=== PATIENT | female | born 1970 | race Two or more races ===

== ENCOUNTER 2021-01-07 13:16 | Emergency (ER) | payer MEDICAID ==
[~2021-01-07] VITALS: Ht 162.6 cm; Wt 77.3 kg
[2021-01-07 13:36] VITALS: BP 142/87
[2021-01-07] MEDS ORDERED: ALBU8.5H17 IH (14:02)
== END 2021-01-07 14:18 | disposition home or self-care (01) ==
LOC: ER 13:16
DX: R06.02 Shortness of breath (principal); F17.200 Nicotine dependence, unspecified, uncomplicated
CPT/HCPCS: 99283

== ENCOUNTER 2021-02-23 16:06 | Inpatient (IN) | payer MEDICAID ==
[~2021-02-23] VITALS: Ht 165.1 cm; Wt 75.0 kg
[~2021-02-23 16:06] MED LIST: ALBU8.5H17 IH
--- NOTE | 2021-02-23 17:18 | NUR ---
CHECKED PT O2 SAT AFTER PT WALKED APROX 23 FT SATS MAINTAINED 98% BUT HR INCREASED TO 125-128 BPM.
[2021-02-23 17:57] LABS: BASOPHILS # (AUTO) 0.1 X10'3 (0-0.2); BASOPHILS % (AUTO) 0.6 % (0-1); EOSINOPHILS # (AUTO) 0.1 X10'3 (0-0.9); EOSINOPHILS % (AUTO) 0.9 % (0-6); HEMATOCRIT 38.3 % (35.0-45.0); HEMOGLOBIN 12.6 g/dl (12.0-16.0); LYMPHOCYTES # (AUTO) 1.8 X10'3 (1.1-4.8); LYMPHOCYTES % (AUTO) 19.2 % (21-51); MEAN CORPUSCULAR HEMOGLOBIN 28.8 PG (27.0-31.0); MEAN CORPUSCULAR HGB CONC 32.8 g/dL (33.0-36.5); MEAN CORPUSCULAR VOLUME 87.8 FL (78-98); MEAN PLATELET VOLUME 7.7 FL (7.4-10.4); MONOCYTES # (AUTO) 0.6 X10'3 (0-0.9); MONOCYTES % (AUTO) 6.3 % (2-12); NEUTROPHILS # (AUTO) 6.8 X10'3 (1.8-7.7); PLATELET COUNT 445 X10'3 (140-440); RED BLOOD COUNT 4.37 X10'6 (4.20-5.60); RED CELL DISTRIBUTION WIDTH 14.6 % (11.5-14.5); WHITE BLOOD COUNT 9.3 X10'3 (4.5-11.0)
[2021-02-23 18:06] LABS: ALANINE AMINOTRANSFERASE 49 U/L (12-78); ALBUMIN 2.8 G/DL (3.4-5.0); ALBUMIN/GLOBULIN RATIO 0.6 (1.1-1.5); ALKALINE PHOSPHATASE 93 IU/L (46-116); ANION GAP 13 (8-16); ASPARTATE AMINO TRANSFERASE 24 U/L (10-37); BILIRUBIN,TOTAL 0.4 MG/DL (0.1-1.0); BLOOD UREA NITROGEN 17 MG/DL (7-18); BUN/CREATININE RATIO 21.5 (6.6-38.0); CHLORIDE 106 MMOL/L (99-107); CREATININE 0.79 MG/DL (0.40-0.90); GLUCOSE 120 MG/DL (70-104); POTASSIUM 4.2 MMOL/L (3.5-5.1); SODIUM 140 MMOL/L (135-145); TOTAL CARBON DIOXIDE 20.8 MMOL/L (24-32); TOTAL PROTEIN 7.2 G/DL (6.4-8.2); eGFR 78 ML/MIN
[2021-02-23] MEDS ORDERED: iohexol 350MG/ML 100ml bottle IV ONE (19:01)
[2021-02-23] MEDS ORDERED: furosemide 10 MG/1 ML 10ml inj IV ONE (20:00)
[2021-02-23] MEDS ORDERED: heparin 10,000 units/1 ML INJ IV ONE ×2 (20:00→20:05)
[2021-02-23] MEDS ORDERED: magnesium 2GM in 50ml NS 50 ML IV PRN (20:30)
[2021-02-23] MEDS ORDERED: PERFLUTREN PROTEIN-A MICROSPHR (Optison) 0.22 MG/ML 3ML VIAL IV ONE (20:30)
[2021-02-23] MEDS ORDERED: potassium Cl 20 mEq SR tablet PO PRN ×2 (20:30)
[2021-02-23] MEDS ORDERED: magnesium 4gm in 100ml NS 100 ML IV PRN (20:30)
[2021-02-23] MEDS ORDERED: magnesium Cl slow-release 64mg tablet PO PRN (20:30)
[2021-02-23] MEDS ORDERED: potassium Cl 40MEQ/1/2NS 520ml 520 ML IV PRN ×2 (20:30)
[2021-02-23] MEDS ORDERED: ondansetron/PF 4mg/2ml inj IV PRN (20:30)
[2021-02-23] MEDS ORDERED: morphine 2 MG/ML inj. syringe IV PRN (20:30)
[2021-02-23] MEDS: heparin 25,000 UNIT/250ml bag 250 ML IV SCH (20:48)
[2021-02-24 03:27] LABS: BASOPHILS # (AUTO) 0.1 X10'3 (0-0.2); BASOPHILS % (AUTO) 1.2 % (0-1); EOSINOPHILS # (AUTO) 0.2 X10'3 (0-0.9); EOSINOPHILS % (AUTO) 1.9 % (0-6); HEMATOCRIT 37.8 % (35.0-45.0); HEMOGLOBIN 12.6 g/dl (12.0-16.0); LYMPHOCYTES # (AUTO) 2.3 X10'3 (1.1-4.8); LYMPHOCYTES % (AUTO) 23.6 % (21-51); MEAN CORPUSCULAR HEMOGLOBIN 28.8 PG (27.0-31.0); MEAN CORPUSCULAR HGB CONC 33.3 g/dL (33.0-36.5); MEAN CORPUSCULAR VOLUME 86.6 FL (78-98); MEAN PLATELET VOLUME 7.8 FL (7.4-10.4); MONOCYTES # (AUTO) 0.6 X10'3 (0-0.9); MONOCYTES % (AUTO) 6.1 % (2-12); NEUTROPHILS # (AUTO) 6.6 X10'3 (1.8-7.7); NEUTROPHILS % (AUTO) 67.2 % (42-75); PLATELET COUNT 413 X10'3 (140-440); RED BLOOD COUNT 4.37 X10'6 (4.20-5.60); RED CELL DISTRIBUTION WIDTH 14.6 % (11.5-14.5); WHITE BLOOD COUNT 9.8 X10'3 (4.5-11.0)
[2021-02-24 03:38] LABS: ALBUMIN 2.7 G/DL (3.4-5.0); ANION GAP 13 (8-16); BLOOD UREA NITROGEN 14 MG/DL (7-18); BUN/CREATININE RATIO 17.9 (6.6-38.0); CALCIUM 8.8 MG/DL (8.5-10.1); CHLORIDE 105 MMOL/L (99-107); CHOL/HDL RATIO 3.3 (0.00-4.99); CHOLESTEROL 88 MG/DL (0-200); CREATININE 0.78 MG/DL (0.40-0.90); GLUCOSE 122 MG/DL (70-104); HDL CHOLESTEROL 27 MG/DL (35-60); LDL CHOLESTEROL 51 MG/DL (50-100); MAGNESIUM 1.9 MG/DL (1.5-2.4); POTASSIUM 3.5 MMOL/L (3.5-5.1); SODIUM 141 MMOL/L (135-145); TRIGLYCERIDES 80 MG/DL (20-135); eGFR 79 ML/MIN
[2021-02-24 06:00] VITALS: BP 140/93
--- NOTE | 2021-02-24 06:27 | NUR ---
Patient in room PCU 3026. I have received report from EDDIE MONROY, and had the opportunity to ask questions and assume patient care.
[2021-02-24] MEDS: K and/or MAG REPLACEMENT MC SCH ×2 (08:00→20:00)
[2021-02-24] MEDS ORDERED: PERFLUTREN PROTEIN-A MICROSPHR (Optison) 0.22 MG/ML 3ML VIAL IV ONE (08:00)
[2021-02-24 11:00] VITALS: BP 128/85
[2021-02-24] MEDS: heparin 10,000 units/1 ML INJ IV PRN (11:26)
[2021-02-24] MEDS: heparin 25,000 UNIT/250ml bag 250 ML IV SCH (14:32)
[2021-02-24 15:00] VITALS: BP 131/95
[2021-02-24 18:00] VITALS: BP 133/90
--- NOTE | 2021-02-24 18:00 | NUR ---
Patient in room PCU 3026. I have received report from Nalini MORGAN and had the opportunity to ask questions and assume patient care.
--- NOTE | 2021-02-24 18:50 | NUR ---
Problems reprioritized. Patient report given, questions answered & plan of care reviewed with EDDIE TRIANA.
[2021-02-24 22:00] VITALS: BP 132/82
[2021-02-25] MEDS: heparin 10,000 units/1 ML INJ IV PRN (00:24)
[2021-02-25] MEDS: heparin 25,000 UNIT/250ml bag 250 ML IV SCH ×3 (00:27→20:38)
[2021-02-25 02:00] VITALS: BP 128/106
[2021-02-25 06:00] VITALS: BP 110/74
--- NOTE | 2021-02-25 06:10 | NUR ---
Patient in room PCU 3026. I have received report from Mili MORGAN and had the opportunity to ask questions and assume patient care.
--- NOTE | 2021-02-25 06:18 | NUR ---
Problems reprioritized. Patient report given, questions answered & plan of care reviewed with Nalini MORGAN.
--- NOTE | 2021-02-25 06:25 | NUR ---
Patient in room PCU 3026. I have received report from EDDIE TRIANA, and had the opportunity to ask questions and assume patient care.
[2021-02-25 07:36] LABS: BASOPHILS % (AUTO) 0.4 % (0-1); EOSINOPHILS # (AUTO) 0.3 X10'3 (0-0.9); EOSINOPHILS % (AUTO) 3.4 % (0-6); HEMATOCRIT 37.2 % (35.0-45.0); HEMOGLOBIN 12.4 g/dl (12.0-16.0); LYMPHOCYTES # (AUTO) 2.3 X10'3 (1.1-4.8); LYMPHOCYTES % (AUTO) 24.4 % (21-51); MEAN CORPUSCULAR HEMOGLOBIN 28.4 PG (27.0-31.0); MEAN CORPUSCULAR HGB CONC 33.4 g/dL (33.0-36.5); MEAN CORPUSCULAR VOLUME 85.2 FL (78-98); MEAN PLATELET VOLUME 8.1 FL (7.4-10.4); MONOCYTES # (AUTO) 0.6 X10'3 (0-0.9); NEUTROPHILS # (AUTO) 6.1 X10'3 (1.8-7.7); NEUTROPHILS % (AUTO) 65.8 % (42-75); PLATELET COUNT 425 X10'3 (140-440); RED BLOOD COUNT 4.37 X10'6 (4.20-5.60); RED CELL DISTRIBUTION WIDTH 14.3 % (11.5-14.5); WHITE BLOOD COUNT 9.3 X10'3 (4.5-11.0)
[2021-02-25 07:55] LABS: ALBUMIN 2.6 G/DL (3.4-5.0); ANION GAP 11 (8-16); BLOOD UREA NITROGEN 11 MG/DL (7-18); BUN/CREATININE RATIO 14.7 (6.6-38.0); CALCIUM 9.2 MG/DL (8.5-10.1); CHLORIDE 106 MMOL/L (99-107); CREATININE 0.75 MG/DL (0.40-0.90); GLUCOSE 105 MG/DL (70-104); MAGNESIUM 2.1 MG/DL (1.5-2.4); POTASSIUM 3.7 MMOL/L (3.5-5.1); SODIUM 140 MMOL/L (135-145); TOTAL CARBON DIOXIDE 23.2 MMOL/L (24-32); eGFR 82 ML/MIN
[2021-02-25] MEDS: K and/or MAG REPLACEMENT MC SCH ×2 (08:00→20:00)
--- NOTE | 2021-02-25 09:18 | NUR ---
PAGE SENT PAGER ID: [phone] MESSAGE: [id number], WINNIE ESTRELLA, MAY PT HAVE TYLENOL FOR PAIN? ONLY FOR FEVER. THANK YOU, CHEO [id number]
[2021-02-25] MEDS: acetaminophen 325mg tablet PO PRN (09:22)
[2021-02-25] MEDS: lisinopril 5mg tablet PO SCH (09:25)
[2021-02-25] MEDS ORDERED: acetaminophen 325mg tablet PO PRN (09:40)
[2021-02-25 11:00] VITALS: BP 126/87
[2021-02-25 15:00] VITALS: BP 129/83
[2021-02-25 18:00] VITALS: BP 126/87
--- NOTE | 2021-02-25 18:12 | NUR ---
Patient in room PCU 3026. I have received report from CHEO MORGAN and had the opportunity to ask questions and assume patient care.
--- NOTE | 2021-02-25 18:19 | NUR ---
Problems reprioritized. Patient report given, questions answered & plan of care reviewed with EDDIE TRIANA.
[2021-02-25] MEDS: furosemide 40mg/4ml inj IV SCH (19:03)
[2021-02-25] MEDS: carVEDilol 3.125mg tablet PO SCH (19:04)
--- NOTE | 2021-02-25 19:47 | NUR ---
PTT THERAP[UTIC, NEXT PTT AT 0030 02/26. [id number]!
[2021-02-25 22:00] VITALS: BP 117/81
--- NOTE | 2021-02-26 00:30 | NUR ---
DVT PTT THERAPUTIC, 60. NO CHANGES, CHRIS RN
[2021-02-26 01:01] LABS: ALBUMIN 2.6 G/DL (3.4-5.0); ANION GAP 12 (8-16); BLOOD UREA NITROGEN 18 MG/DL (7-18); BUN/CREATININE RATIO 22.5 (6.6-38.0); CALCIUM 8.6 MG/DL (8.5-10.1); CHLORIDE 103 MMOL/L (99-107); GLUCOSE 100 MG/DL (70-104); POTASSIUM 4.1 MMOL/L (3.5-5.1); SODIUM 138 MMOL/L (135-145); TOTAL CARBON DIOXIDE 23.3 MMOL/L (24-32); eGFR 77 ML/MIN
[2021-02-26 02:00] VITALS: BP 130/78
[2021-02-26 06:00] VITALS: BP 121/87
--- NOTE | 2021-02-26 06:10 | NUR ---
Problems reprioritized. Patient report given, questions answered & plan of care reviewed with Nalini MORGAN.
--- NOTE | 2021-02-26 06:23 | NUR ---
Patient in room PCU 3026. I have received report from EDDIE TRIANA, and had the opportunity to ask questions and assume patient care.
[2021-02-26] MEDS: lisinopril 5mg tablet PO SCH (07:56)
[2021-02-26] MEDS: furosemide 40mg/4ml inj IV SCH ×2 (07:56→20:40)
[2021-02-26] MEDS: carVEDilol 3.125mg tablet PO SCH ×2 (07:56→20:41)
[2021-02-26] MEDS: K and/or MAG REPLACEMENT MC SCH ×2 (08:00→20:00)
[2021-02-26 08:21] LABS: BASOPHILS % (AUTO) 0.5 % (0-1); EOSINOPHILS # (AUTO) 0.6 X10'3 (0-0.9); EOSINOPHILS % (AUTO) 6.1 % (0-6); HEMATOCRIT 37.4 % (35.0-45.0); HEMOGLOBIN 12.5 g/dl (12.0-16.0); LYMPHOCYTES % (AUTO) 21.5 % (21-51); MEAN CORPUSCULAR HEMOGLOBIN 28.8 PG (27.0-31.0); MEAN CORPUSCULAR HGB CONC 33.4 g/dL (33.0-36.5); MEAN CORPUSCULAR VOLUME 86.1 FL (78-98); MEAN PLATELET VOLUME 8.2 FL (7.4-10.4); MONOCYTES # (AUTO) 0.5 X10'3 (0-0.9); MONOCYTES % (AUTO) 5.6 % (2-12); NEUTROPHILS # (AUTO) 6.2 X10'3 (1.8-7.7); NEUTROPHILS % (AUTO) 66.3 % (42-75); PLATELET COUNT 434 X10'3 (140-440); RED BLOOD COUNT 4.34 X10'6 (4.20-5.60); RED CELL DISTRIBUTION WIDTH 14.2 % (11.5-14.5); WHITE BLOOD COUNT 9.3 X10'3 (4.5-11.0)
[2021-02-26] MEDS: heparin 25,000 UNIT/250ml bag 250 ML IV SCH ×2 (10:56→23:11)
[2021-02-26 11:00] VITALS: BP 110/78
[2021-02-26 15:00] VITALS: BP 106/67
--- NOTE | 2021-02-26 15:00 | NUR ---
SPOKE TO HILL FROM "[facility]", WHO WAS WANTING TO FIT PT. UNCLEAR TO WHEN PT WILL BE DISCHARGED. HILL REPORTS SHE PLANS TO FIT PT 02/27 AT 1300. SHE WILL PHONE BEFORE LEAVING [place] TO BE CERTAIN PT ISN'T DISCHARGED.
[2021-02-26 18:00] VITALS: BP 106/79
--- NOTE | 2021-02-26 18:18 | NUR ---
Nazanin in room U 3026. I have received report from CHEO MORGAN and had the opportunity to ask questions and assume patient care.
--- NOTE | 2021-02-26 18:18 | NUR ---
Problems reprioritized. Patient report given, questions answered & plan of care reviewed with EDDIE TRIANA.
[2021-02-26] MEDS: acetaminophen 325mg tablet PO PRN (20:53)
[2021-02-26 22:00] VITALS: BP 87/58
[2021-02-27 02:00] VITALS: BP 90/58
--- NOTE | 2021-02-27 06:23 | NUR ---
Problems reprioritized. Patient report given, questions answered & plan of care reviewed with J LUIS MORGAN.
[2021-02-27 06:45] LABS: ALBUMIN 2.8 G/DL (3.4-5.0); ANION GAP 9 (8-16); BLOOD UREA NITROGEN 15 MG/DL (7-18); BUN/CREATININE RATIO 19.7 (6.6-38.0); CALCIUM 9.4 MG/DL (8.5-10.1); CHLORIDE 104 MMOL/L (99-107); CREATININE 0.76 MG/DL (0.40-0.90); GLUCOSE 99 MG/DL (70-104); MAGNESIUM 2.4 MG/DL (1.5-2.4); POTASSIUM 3.8 MMOL/L (3.5-5.1); SODIUM 138 MMOL/L (135-145); TOTAL CARBON DIOXIDE 25.2 MMOL/L (24-32); eGFR 81 ML/MIN
[2021-02-27 06:47] LABS: BASOPHILS % (AUTO) 0.5 % (0-1); EOSINOPHILS # (AUTO) 0.6 X10'3 (0-0.9); EOSINOPHILS % (AUTO) 8.5 % (0-6); HEMATOCRIT 39.7 % (35.0-45.0); HEMOGLOBIN 13.1 g/dl (12.0-16.0); LYMPHOCYTES # (AUTO) 1.9 X10'3 (1.1-4.8); LYMPHOCYTES % (AUTO) 25.2 % (21-51); MEAN CORPUSCULAR HEMOGLOBIN 28.5 PG (27.0-31.0); MEAN CORPUSCULAR HGB CONC 32.9 g/dL (33.0-36.5); MEAN CORPUSCULAR VOLUME 86.8 FL (78-98); MEAN PLATELET VOLUME 7.6 FL (7.4-10.4); MONOCYTES # (AUTO) 0.7 X10'3 (0-0.9); MONOCYTES % (AUTO) 8.9 % (2-12); NEUTROPHILS # (AUTO) 4.3 X10'3 (1.8-7.7); NEUTROPHILS % (AUTO) 56.9 % (42-75); PLATELET COUNT 448 X10'3 (140-440); RED BLOOD COUNT 4.58 X10'6 (4.20-5.60); RED CELL DISTRIBUTION WIDTH 14.8 % (11.5-14.5); WHITE BLOOD COUNT 7.6 X10'3 (4.5-11.0)
[2021-02-27] MEDS: lisinopril 5mg tablet PO SCH ×2 (07:53→22:02)
[2021-02-27] MEDS: carVEDilol 3.125mg tablet PO SCH ×2 (07:53→22:02)
[2021-02-27] MEDS: furosemide 40mg/4ml inj IV SCH ×2 (07:53→22:02)
[2021-02-27] MEDS: K and/or MAG REPLACEMENT MC SCH ×2 (07:54→20:00)
[2021-02-27] MEDS ORDERED: nitroGLYCERIN 0.4mg SUBLingual tab SL PRN (10:50)
[2021-02-27] MEDS ORDERED: aminophylline 250mg/10ml inj. IV PRN (10:50)
[2021-02-27] MEDS ORDERED: metoprolol tartrate 1mg/ml inj IV PRN (10:50)
[2021-02-27] MEDS ORDERED: regadenoson 0.4mg/5ml syringe IV PRN (10:50)
[2021-02-27 11:22] VITALS: BP 112/68
--- NOTE | 2021-02-27 12:36 | NUR ---
Iris cancelled Per iris Cortes not necessary, and recommends pt continue medication therapy. Pt is brought back room. Report given to nurse and charge nurse on PCU.
[2021-02-27 13:10] LABS: PARTIAL THROMBOPLASTIN TIME 48 SECONDS (22-32)
[2021-02-27] MEDS ORDERED: NITR0.4T51 SL (15:20)
[2021-02-27] MEDS ORDERED: APIX5TAB3 PO (15:20)
[2021-02-27] MEDS ORDERED: LISI-790 PO (15:20)
[2021-02-27] MEDS ORDERED: COR3.125T PO (15:20)
[2021-02-27] MEDS ORDERED: FURO-150 PO (15:26)
[2021-02-27] MEDS ORDERED: POTA10TA36 PO (15:27)
--- NOTE | 2021-02-27 15:57 | NUR ---
Patient refusing to wear life vest, she was educated on reasoning why is needed and she stated that she will discuss it with Cardiology tomorrow.
--- NOTE | 2021-02-27 17:30 | NUR ---
Patient's pail tester was called to advised patient would like his opinion in regards to life vest, and that she was possibly declining to wear the vest. Physician verbalized he did not order the vest and stated patient has the choice to choose if she wanted the vest or not.
[2021-02-27 18:58] LABS: PARTIAL THROMBOPLASTIN TIME 65 SECONDS (22-32)
--- NOTE | 2021-02-27 19:45 | NUR ---
aPTT was order instead of PTT for heparin drip chrage nurse Teddy said PTT as to be done per heparin protocol. Will put in another order for PTT
--- NOTE | 2021-02-27 19:53 | NUR ---
Contacted lab spoked to [facility], AND HE SAID APTT AND PTT IS THE SAME NUMBER, aPTT CAN BE USED FOR THE SAME PROTOCOL
[2021-02-27 22:02] VITALS: BP_SYST 112
[2021-02-28 04:37] LABS: BASOPHILS # (AUTO) 0.1 X10'3 (0-0.2); BASOPHILS % (AUTO) 0.8 % (0-1); EOSINOPHILS # (AUTO) 0.6 X10'3 (0-0.9); EOSINOPHILS % (AUTO) 6.9 % (0-6); HEMATOCRIT 40.8 % (35.0-45.0); HEMOGLOBIN 13.2 g/dl (12.0-16.0); LYMPHOCYTES # (AUTO) 2.2 X10'3 (1.1-4.8); LYMPHOCYTES % (AUTO) 23.2 % (21-51); MEAN CORPUSCULAR HEMOGLOBIN 28.2 PG (27.0-31.0); MEAN CORPUSCULAR HGB CONC 32.5 g/dL (33.0-36.5); MEAN CORPUSCULAR VOLUME 86.7 FL (78-98); MEAN PLATELET VOLUME 7.8 FL (7.4-10.4); MONOCYTES # (AUTO) 0.8 X10'3 (0-0.9); MONOCYTES % (AUTO) 8.8 % (2-12); NEUTROPHILS # (AUTO) 5.6 X10'3 (1.8-7.7); NEUTROPHILS % (AUTO) 60.3 % (42-75); PLATELET COUNT 459 X10'3 (140-440); RED CELL DISTRIBUTION WIDTH 14.9 % (11.5-14.5); WHITE BLOOD COUNT 9.3 X10'3 (4.5-11.0)
[2021-02-28 05:00] LABS: ALBUMIN 2.7 G/DL (3.4-5.0); ANION GAP 12 (8-16); BLOOD UREA NITROGEN 17 MG/DL (7-18); BUN/CREATININE RATIO 24.6 (6.6-38.0); CHLORIDE 105 MMOL/L (99-107); CREATININE 0.69 MG/DL (0.40-0.90); GLUCOSE 108 MG/DL (70-104); MAGNESIUM 2.3 MG/DL (1.5-2.4); POTASSIUM 4.1 MMOL/L (3.5-5.1); SODIUM 138 MMOL/L (135-145); TOTAL CARBON DIOXIDE 20.9 MMOL/L (24-32); eGFR > 90 ML/MIN
[2021-02-28] MEDS: heparin 25,000 UNIT/250ml bag 250 ML IV SCH (05:48)
[2021-02-28] MEDS: furosemide 40mg/4ml inj IV SCH (08:00)
[2021-02-28] MEDS: carVEDilol 3.125mg tablet PO SCH (08:00)
--- NOTE | 2021-02-28 08:30 | NUR ---
Attending page for orders for one time dose of Eliquis, she declined.
[2021-02-28] MEDS: K and/or MAG REPLACEMENT MC SCH (08:41)
== END 2021-02-28 09:49 | disposition home or self-care (01) | DRG 134 ==
LOC: ER 16:07 → ED HOLD 20:35 → PCU 3S 02-24 03:57
PROVIDERS: ADMIT Internal Medicine; ATTEND Internal Medicine
PROC: B32T1ZZ Computerized Tomography (CT Scan) of Left Pulmonary Artery using Low Osmolar Contrast (ICD-10-PCS; principal; 2021-02-23)
PROC: B3201ZZ Computerized Tomography (CT Scan) of Thoracic Aorta using Low Osmolar Contrast (ICD-10-PCS; 2021-02-23)
PROC: B32S1ZZ Computerized Tomography (CT Scan) of Right Pulmonary Artery using Low Osmolar Contrast (ICD-10-PCS; 2021-02-23)
PROC: 4A02XM4 Measurement of Cardiac Total Activity, External Approach (ICD-10-PCS; 2021-02-27)
PROC: 3E073KZ Introduction of Other Diagnostic Substance into Coronary Artery, Percutaneous Approach (ICD-10-PCS; 2021-02-27)
DX: I26.99 Other pulmonary embolism without acute cor pulmonale (principal); I50.23 Acute on chronic systolic (congestive) heart failure; F14.90 Cocaine use, unspecified, uncomplicated; Z20.822 Contact with and (suspected) exposure to COVID-19; I42.7 Cardiomyopathy due to drug and external agent; I25.10 Atherosclerotic heart disease of native coronary artery without angina pectoris; Z80.8 Family history of malignant neoplasm of other organs or systems; Z82.49 Family history of ischemic heart disease and other diseases of the circulatory system
CPT/HCPCS: 36415; 71045; 71275; 78451; 80048; 80053; 80061; 83735; 83880; 84145; 84484; 85025; 85379; 85730; 87635; 93005; 93306; 99285; A9500; G0378; J1644; J1940; Q9967

== ENCOUNTER 2021-07-08 18:26 | Emergency (ER) | payer MEDICAID ==
[~2021-07-08] VITALS: Ht 162.6 cm; Wt 77.3 kg
[~2021-07-08 18:26] MED LIST changes: +APIX5TAB3 PO; +COR3.125T PO; +FURO-150 PO; +LISI5TAB22 PO; +NITR0.4T51 SL; +POTA10TA37 PO
[2021-07-08 19:03] VITALS: BP 155/85
== END 2021-07-08 20:37 | disposition home or self-care (01) ==
LOC: ER 18:26
DX: J06.9 Acute upper respiratory infection, unspecified (principal); I50.9 Heart failure, unspecified; Z20.822 Contact with and (suspected) exposure to COVID-19
CPT/HCPCS: 87502; 87503; 87635; 99283; C9803

== ENCOUNTER 2023-10-10 16:49 | Outpatient (CLI) | payer MEDICAID ==
[~2023-10-10 16:49] MED LIST changes: +POTA-206 PO; -POTA10TA37 PO
== END 2023-10-10 23:59 | disposition home or self-care (01) ==
LOC: RAD 16:49
PROVIDERS: ATTEND Nurse Practitioner
DX: M25.462 Effusion, left knee (principal); M25.562 Pain in left knee
CPT/HCPCS: 73564

== ENCOUNTER 2024-10-19 07:38 | Emergency (ER) | payer MEDICAID ==
[~2024-10-19] VITALS: Ht 160 cm; Wt 77.3 kg
[~2024-10-19 07:38] MED LIST changes: +CARV3.1232 PO; -COR3.125T PO
[2024-10-19 08:03] VITALS: BP 140/88; TEMP 98.1
--- NOTE | 2024-10-19 08:28 | RADIOLOGY REPORT ---
DI FOOT, COMPLETE (3VW MIN), INDICATION: FOOT PAIN TECHNICAL DATA: Frontal, oblique and lateral views were obtained of the right foot. COMPARISON: None FINDINGS: No fracture is identified. Joint spaces are maintained. Alignment is anatomic. The hallux sesamoids a ppear normal. Soft tissues are within normal limits. IMPRESSION: No acute fracture or dislocation of the right foot.
--- NOTE | 2024-10-19 08:59 | Physician Documentation ---
History of Present Illness General Chief Complaint: Foot pain Stated Complaint: L FOOT PAIN Time Seen by : 08:55 Primary Medical Doctor: [facility] History of Present Illness Initial Comments The patient is a 54-year-old female who arrives with left foot pain after she twisted it last night. She is able to ambulate. Medication Reconciliation Allergies: Coded Allergies: No Known Allergies (Unverified , 10/19/24) Scheduled Apixaban (Eliquis), 5 MG PO BID Carvedilol (Carvedilol), 3.125 MG PO BID Furosemide (Lasix), 20 MG PO DAILY Lisinopril (Lisinopril), 5 MG PO DAILY Potassium Chloride (K-Dur), 10 MEQ PO DAILY Scheduled PRN Albuterol Sulfate (Proair Hfa), 2 PUFFS IH Q6H PRN for SOB or wheezing Nitroglycerin SL* (Nitrostat SL*), 0.4 MG SL Q5MIN PRN for chest pain Past Medical History Past Medical History: Congestive Heart Failure, Pulmonary Embolism Past Surgical History: no surgical history Lives with: Spouse Lives In: Home Past Social History: Hx cocaine use Review of Systems ROS A 10 point review of systems was negative except as noted in the HPI. Physical Exam Physical Exam Vital Signs: Temperature: 98.1, Source: Oral, Heart Rate: 81, Respiratory Rate: 18, BP: 140/88, Pulse Oximetry: 98, Weight: 77.270 Oxygen Flow Rate: 0 Physical Exam There is some slight tenderness at the base of the 5th metatarsal area. No bruising. No deformity. Neurovascular is intact. Progress Results/Orders Results/Orders Orders - WHITNEY OJEDA MD Foot, Complete (3vw Min) (10/19/24 07:44) Completed Orders - WHITNEY OJEDA MD Foot, Complete (3vw Min) (10/19/24 07:44) Vital Signs 10/19/24 10/19/24 07:41 08:03 Temp 98.1 98.1 Pulse 89 81 Resp 17 18 B/P (MAP) 147/86 140/88 (105) Pulse Ox 100 98 O2 Flow Rate 0 0 Medical Decision Making Findings X-rays of the foot are negative for acute findings. Departure Impression: Primary Impression: Sprain of left foot Condition: Stable Discharge Instructions: Sprains Additional Instructions: Keep your foot elevated as much as possible and apply ice. Referrals: NO PRIMARY CARE PROVIDER (PCP) Education Educated: Patient Signature Scribe Signature: . Attestation: . WHITNEY OJEDA MD Oct 19, 2024 08:59
[2024-10-19 09:26] VITALS: PULSE 71; RESP 18; O2SAT 98
== END 2024-10-19 09:27 | disposition home or self-care (01) ==
LOC: ER 07:38
DX: S93.602A Unspecified sprain of left foot, initial encounter (principal); I50.9 Heart failure, unspecified; X58.XXXA Exposure to other specified factors, initial encounter; Y93.89 Activity, other specified; Y92.89 Other specified places as the place of occurrence of the external cause; Y99.8 Other external cause status
CPT/HCPCS: 73630; 99284; A6449

== ENCOUNTER 2024-10-29 12:39 | Outpatient (CLI) | payer MEDICAID ==
--- NOTE | 2024-10-29 14:20 | RADIOLOGY REPORT ---
[facility] INDICATION: CERVICAL RADICULOPATHY COMPARISON: None TECHNIQUE: 7 views of the cervical spine were obtained. FINDINGS: Straightening of the cervical spine. The predental space is normal. Moderate multilevel degenerative disc disease of the cervical spine. No acute fracture, vertebral compression deformity or aggressive osseous lesions. The imaged lung apices are unremarkable. IMPRESSION: No acute fracture. Moderate multilevel degenerative disc disease of the cervical spine.
== END 2024-10-29 23:59 | disposition home or self-care (01) ==
LOC: RAD 12:39
PROVIDERS: ATTEND Family Medicine
DX: M50.10 Cervical disc disorder with radiculopathy, unspecified cervical region (principal)
CPT/HCPCS: 72050

== ENCOUNTER 2024-11-28 12:05 | Emergency (ER) | payer MEDICAID ==
[~2024-11-28] VITALS: Ht 165.1 cm; Wt 75.4 kg
[~2024-11-28 12:05] MED LIST changes: -CARV3.1232 PO; +COR3.125T PO
[2024-11-28 12:11] VITALS: BP 131/72; PULSE 82; RESP 16; TEMP 98.3; O2SAT 98
[2024-11-28] MEDS ORDERED: ERYT1OIN6 RIGHTEYE (12:38)
--- NOTE | 2024-11-28 12:39 | Physician Documentation ---
History of Present Illness ~ Chief Complaint: Eye Pain Stated Complaint: EYE SWELLING Time Seen by MD: 12:14 OK to notify your PCP?: Yes Primary Medical Doctor: [facility] Source: patient Mode of Arrival: POV Exam Limitations: no limitations HPI 54-year-old female with chief complaint swelling to her right lower eyelid x1 day. Pre arrival treatment with Neosporin to the area which she states she does believe may have increased the swelling. No vision changes. No injury to her eye. No photophobia. Does not wear contact lenses. Medication Reconciliation Allergies: Coded Allergies: No Known Allergies (Unverified , 10/19/24) Scheduled Apixaban (Eliquis), 5 MG PO BID Carvedilol (Carvedilol), 3.125 MG PO BID Furosemide (Lasix), 20 MG PO DAILY Lisinopril (Lisinopril), 5 MG PO DAILY Potassium Chloride (K-Dur), 10 MEQ PO DAILY Scheduled PRN Albuterol Sulfate (Proair Hfa), 2 PUFFS IH Q6H PRN for SOB or wheezing Nitroglycerin SL* (Nitrostat SL*), 0.4 MG SL Q5MIN PRN for chest pain Past Medical History Past Medical History: No Pertinent History, Congestive Heart Failure, Pulmonary Embolism Past Surgical History: no surgical history Lives with: Spouse Lives In: Home Past Social History: Hx cocaine use Review of Systems All Other Systems at this time: Reviewed and Negative Physical Exam Vital Signs: Temperature: 98.3, Source: Oral, Heart Rate: 82, Respiratory Rate: 16, BP: 131/72, Pulse Oximetry: 98, Weight: 75.400 Oxygen Flow Rate: 0 Physical Exam General Appearance: Alert, WD/WN. NAD. HEENT: NCAT, PERRL, EOMI. Right lower eyelid erythematous nodule at the rim of the eyelid. Mild localized surrounding edema. Over conjunctiva clear no increased injection or tearing. Neck: Supple, trachea midline. Cardiovascular: RRR. No m/r/g. Lungs: CTAB. Breathing unlabored Extremities: Normal inspection. No edema. Skin: Warm/dry, normal color Neurological: Alert and oriented x4, normal gait. Psychiatric: Affect congruent with mood. Progress Results/Orders Results/Orders Vital Signs 11/28/24 12:11 Temp 98.3 Pulse 82 Resp 16 B/P (MAP) 131/72 Pulse Ox 98 O2 Flow Rate 0 Medical Decision Making Eye Diff. Dx: Considerations: Include: [place], Conjuctivits-allergic, Conjuctivitis-bacterial, Conjuctivits-chlamydial, Conjuctivitis-viral, Corneal abrasion, Corneal laceration, Corneal ulceration, Foreign body-conjuctiva, Foreign body-corneal, Foreign body-intraocular, Foreign body-lid, Glaucoma, Globe rupture, Hordeolum, Iritis, Orbital cellulitis, Periobital cellulitis, Retinal artery occulsion, Retinal vein occlusion, Rust ring, Subconjunctival hem, Ultraviolet keratitis, Uveitis, Vitreous hemorrhage Departure Time of Disposition: 12:37 Disposition: 01 HOME / SELF CARE / HOMELESS Impression: Primary Impression: Hordeolum externum of right lower eyelid Condition: Stable Discharge Instructions: Annette Additional Instructions: ERYTHROMYCIN OINTMENT TO RIGHT LOWER EYELID FOR 5-7DAYS THROW AWAY MASCARA WARM COMPRESSES Referrals: NO PRIMARY CARE PROVIDER (PCP) Prescriptions Erythromycin Base Opth. Ointment* (Erythromycin Opth. Ointment*) 1 Gm Tube 1 APPLIC RIGHTEYE Q6HWA for 7 Days, #1 EACH Prov: KAELYN WHITNEY 11/28/24 Education Educated: Patient Educated regarding: diagnosis, treatment, need for follow up Signature Scribe Signature: X Attestation: KAELYN EUBANKS Nov 28, 2024 12:39
== END 2024-11-28 12:40 | disposition home or self-care (01) ==
LOC: ER 12:06
DX: H00.012 Hordeolum externum right lower eyelid (principal)
CPT/HCPCS: 99283

== ENCOUNTER 2025-03-02 11:12 | Inpatient (IN) | payer MEDICAID ==
[~2025-03-02] VITALS: Ht 162.6 cm; Wt 79.2 kg
[2025-03-02 11:53] LABS: MEAN PLATELET VOLUME 7.5 FL (7.4-10.4); RED CELL DISTRIBUTION WIDTH 14.1 % (11.5-14.5)
--- NOTE | 2025-03-02 11:54 | RADIOLOGY REPORT ---
DI CHEST,SINGLE VIEW, HISTORY: CP COMPARISON: CT CTA CHEST PE W/ IV CONTRAST on DOS: 03/02/25, CTA CHEST on DOS: 02/23/21, CHEST,SINGLE VIEW on DOS: 02/23/21 CT CTA CHEST PE W/ IV CONTRAST on DOS: 03/02/25, CTA CHEST on DOS: 02/23/21, CHEST,SINGLE VIEW on DOS: 02/23/21 TECHNICAL DATA: 1 view of the chest was obtained. FINDINGS: Lines and tubes: None Cardiomediastinal silhouette: Enlarged Pulmonary vasculature: normal Lung expansion: normal Lung airspace: normal Lung interstitium: normal Pleura: normal Pneumothorax: no Bones: Unremarkable Other: no IMPRESSION: No acute intrathoracic abnormality. Cardiomegaly.
[2025-03-02 12:20] LABS: CREATININE 0.59 MG/DL (0.40-0.90); PRO BRAIN NATRIURETIC PEPTIDE 5872 PG/ML (0-125); TOTAL CARBON DIOXIDE 24.4 MMOL/L (24-32); eCRCL 96 ML/MIN; eGFR > 90 ML/MIN
--- NOTE | 2025-03-02 13:31 | ELECTROCARDIOGRAPH REPORT ---
[facility] Test Date: 2025-03-02 Test Time: 11:19:41 Pat Name: WINNIE PEDRO Department: EMERGENCY ROOM Patient ID: [facility]-[id number] Room: Gender: F Senior [employer] Developer: JENIFER : 1970 Requested By: FRANCOIS CANTRELL Order Number: [id number] Reading MD: Dr. Francois Cantrell Measurements Intervals [place] Rate: 103 P: 78 ID: [id number] QRS: 100 QRSD: 96 T: -39 QT: 344 QTc: 451 Interpretive Statements Sinus tachycardia Ventricular premature complex Right atrial enlargement Right axis deviation Borderline repolarization abnormality Baseline wander in lead(s) V3 Electronically Signed On 03-02-2025 14:36:[address] Francois Cantrell Please click the below link to view image of tracing.
--- NOTE | 2025-03-02 13:37 | Physician Documentation ---
History of Present Illness ~ Chief Complaint: Shortness of Breath Stated Complaint: SOB Time Seen by MD: 12:52 Primary Medical Doctor: [facility] HPI This is a 54-year-old female with a history of pulmonary artery embolism three years ago presents with increased shortness a breath which has worsened over the last two weeks. States she does have some chest discomfort which is intermittent. He states that the pain is sharp in nature and happens when she has been feeling short of breath.. denies any history of smoking or COPD or asthma She says that she used to take Eliquis but is no longer taking it. Patient was moderately tachycardic in triage. Patient does have a history of previous methamphetamine use and has been diagnosed with cardiomegaly and heart failure. according labs the last time she tested in 2020 she had over 6000 proBNP. States she does not take Lasix and that her order picker's is Dr. Draper. sHe adds that her last appointment she missed last August Day of Onset: Mar 02, 2025 Medication Reconciliation Allergies: Coded Allergies: No Known Allergies (Unverified , 10/19/24) Scheduled Apixaban (Eliquis), 5 MG PO BID Carvedilol (Carvedilol), 3.125 MG PO BID Furosemide (Lasix), 20 MG PO DAILY Lisinopril (Lisinopril), 5 MG PO DAILY Potassium Chloride (K-Dur), 10 MEQ PO DAILY Scheduled PRN Albuterol Sulfate (Proair Hfa), 2 PUFFS IH Q6H PRN for SOB or wheezing Nitroglycerin SL* (Nitrostat SL*), 0.4 MG SL Q5MIN PRN for chest pain Past Medical History Past Medical History: No Pertinent History, Congestive Heart Failure, Pulmonary Embolism Past Surgical History: no surgical history Lives with: Spouse Lives In: Home Past Social History: Hx cocaine use Review of Systems All Other Systems at this time: Reviewed and Negative ROS As stated above in the HPI, otherwise all systems are reviewed and negative. Physical Exam Vital Signs: Temperature: 98.4, Source: Oral, Heart Rate: 95, Respiratory Rate: 27, BP: 152/110, Pulse Oximetry: 97, Weight: 79.200 Oxygen Flow Rate: 0 Physical Exam General: Alert, no apparent distress. Respiratory: Lungs clear, no respiratory distress. Chest: No accessory muscle use. Cardiovascular: Regular rate and rhythm, no murmurs. Neurologic: Oriented x4. Psychiatric: Normal mood and affect. Skin: Normal color, warm and dry. No edema, no ecchymosis. Progress Results/Orders Results/Orders Orders - WILL PAIZ NP [facility] (03/02/25 ) Vital Signs 03/02/25 03/02/25 03/02/25 03/02/25 11:13 13:13 13:15 15:01 Temp 98.4 Pulse 104 95 102 Resp 16 27 20 19 B/P (MAP) 155/95 152/110 (124) 162/108 (126) Pulse Ox 99 97 99 O2 Flow Rate 0 0 0 Laboratory Tests Test 03/02/25 11:27 03/02/25 11:38 03/02/25 13:47 03/02/25 14:38 D-Dimer 1.14 H D-Dimer Comment Sodium Level 137 Potassium Level 4.0 Chloride Level 105 Carbon Dioxide Level 24.4 Anion Gap 8 Blood Urea Nitrogen 15 Creatinine 0.59 Estimated GFR/1.73 m2 > 90 BUN/Creatinine Ratio 25.4 H Glucose Level 124 H Hemoglobin A1c 5.7 Calcium Level 8.7 Magnesium Level 2.1 Troponin I High Sensitivity 42 43 43 Pro-B-Type Natriuretic Peptide 5872 H Albumin 3.1 L Chemistry Comments White Blood Count 8.1 Red Blood Count 4.48 Hemoglobin 12.9 Hematocrit 38.7 Mean Corpuscular Volume 86.4 Mean Corpuscular Hemoglobin 28.7 Mean Corpuscular Hemoglobin Concent 33.3 Red Cell Distribution Width 14.1 Platelet Count 351 Mean Platelet Volume 7.5 Neutrophils (%) (Auto) 65.7 Lymphocytes (%) (Auto) 26.0 Monocytes (%) (Auto) 6.4 Eosinophils (%) (Auto) 1.3 Basophils (%) (Auto) 0.6 Neutrophils # (Auto) 5.3 Lymphocytes # (Auto) 2.1 Monocytes # (Auto) 0.5 Eosinophils # (Auto) 0.1 Basophils # (Auto) 0.1 CBC Comment Troponin I High Sens Percent Delta 2 0 Troponin I Hi Sens Absolute Change 1 0 Medical Decision Making Additional information obtaine: N/A Findings Initially I was concerned for the possibility of a pulmonary embolism based on her elevated D-dimer. Therefore a CTA was ordered which came back negative for PE. However, the patient has increased shortness a breath is concerning especially considering her history of congestive heart failure. With the patient reporting she has not had ongoing cardiology care, concerns that she may be having a CHF exacerbation. Her chest x-ray per my interpretation shows signs of cardiomegaly megaly I did not see any fluid buildup however He remains mildly tachycardic with a an elevated proBNP over 5000 troponin is negative Based on my clinical findings I suspect that she would benefit from echocardiogram and further medical management along with possibly adding a diuretic to her medication regimen Heart Score: 5 Differential Dx:Considerations: Include: anxiety, asthma, bronchitis, cardio genic shock, CHF, COPD, dysrhythmia, hypertension, accelerated, hypertension, essential, hypertension, malignant, hyperventilation, hyponatremia, myocardial infarction, panic attack, pneumonia, pneumonitis, pneumothorax, PSVT, pulmonary embolism, respiratory distress, respiratory failure, sinusitis, upper resp. infection, other Departure Disposition: ADMITTED INPATIENT Impression: Primary Impression: Acute on chronic diastolic heart failure Condition: Stable Referrals: NO PRIMARY CARE PROVIDER (PCP) Signature Scribe Signature: f Attestation: Scribed for Will Paiz Superannuation Funds Manager by Will Garber NP . 03/02/25 14:24 WILL PAIZ NP Mar 02, 2025 13:37
--- NOTE | 2025-03-02 14:07 | RADIOLOGY REPORT ---
CTA Chest with intravenous contrast INDICATION: SOB hx PE COMPARISON: CTA CHEST on DOS: 02/23/21, CHEST,SINGLE VIEW on DOS: 02/23/21 TECHNIQUE: Multidetector spiral CTA of the chest was performed of the chest with intravenous contrast. PULMONARY ANGIOGRAPHY PROTOCOL was utilized using a bolus- tracking technique centered on the main pulmonary artery. Axial, coronal and sagittal multiplanar and MIP reformats were performed. Radiation Dose : 1. Chest: CTDI volume is 21.46 mGy. Dose-length product is 50.55 mGy*cm The dose indicators for CT are the volume Computed Tomography (CT) Dose Index (CTDIvol) and the Dose Length Product (DLP), and are measured in units of mGy and mGy-cm, respectively. These indicators are not patient dose, but values generated from the CT scanner acquisition factors. The report includes radiation exposure data for exposures received during this examination. Contrast: 100 cc Omnipaque 350. Findings: Pulmonary artery: No pulmonary embolism Lower neck: Normal thyroid. Lungs: No focal consolidation, pleural effusion or pneumothorax. Heart/Vascular Structures: Normal heart size. No pericardial effusion. Lymph Nodes: Grossly stable lymphadenopathy throughout the chest with AP window lymph nodes measuring up to 1.3 cm, subcarinal lymph nodes measuring up to 1.8 cm, in at the srini measuring up to 1.1 cm on the right. Stable subcentimeter bilateral axillary and subpectoral lymph nodes. Pleura: Small bilateral pleural effusions. Musculoskeletal: No acute osseous abnormality. Soft tissues: Normal. Upper abdomen: Limited portions of the upper abdomen are unremarkable. IMPRESSION: No pulmonary embolus or other acute abnormality. Stable intrathoracic lymphadenopathy.
[2025-03-02] MEDS ORDERED: magnesium sulf-water 4G/100mL 100 ML IV PRN (16:40)
[2025-03-02] MEDS: PERFLUTREN PROTEIN-A MICROSPHR (Optison) 0.22 MG/ML 3ML VIAL IV ONE (16:40)
[2025-03-02] MEDS ORDERED: magnesium sulf-water 2g/50mL 50 ML IV PRN (16:40)
[2025-03-02] MEDS ORDERED: magnesium hydroxide 30ml (MOM) UD suspension PO PRN (16:40)
[2025-03-02] MEDS ORDERED: docusate sod 100mg capsule PO PRN (16:40)
[2025-03-02] MEDS ORDERED: mag hydrox/Alum hydrox/simeth 30ml oral suspension PO PRN (16:40)
[2025-03-02] MEDS ORDERED: magnesium Cl slow-release 64mg tablet PO PRN (16:40)
[2025-03-02] MEDS ORDERED: potassium Cl 40MEQ/1/2NS 520ml 520 ML IV PRN (16:40)
[2025-03-02] MEDS ORDERED: ondansetron/PF 4mg/2ml inj IV PRN (16:40)
[2025-03-02] MEDS ORDERED: potassium Cl 20 mEq SR tablet PO PRN ×2 (16:40)
[2025-03-02] MEDS ORDERED: albuterol 2.5 MG/3 ML nebule NEB PRN (16:50)
--- NOTE | 2025-03-02 17:02 | HISTORY AND PHYSICAL-Residence ---
History & Physical Providers to CC Resident Creating Document: AIYANA COOK RES ~ History of Present Illness Primary Medical Doctor: [facility] Reason for Admit\Complaint: Acute respiratory failure from CHF exacerbation History of Present Illness A 54 years old female with a past medical history of CHFrEF 15-20%, pulmonary hypertension with RVSP 56 mm Hg on 02/24/2021, pulmonary embolism in 2021, chronic back pain, substance use disorder-heavy ETOH, who presented to the ER for the acute shortness of breath and visited to the ER with the own concern of having the pulmonary embolism. The patient endorsed that she was having shortness of breath over two weeks which was progressive in nature and did not get better today which made her go to the ER. She noticed that SOB was persistent even on the rest, and disturbed her daily routine. She also reported for the PND Orthopnea and gradually increase in the size of the bilateral ankle swelling. She also reported for the non-radiating intermittent central chest pressure over a week which lasted minutes while she was on exertion. She denied for the fever with chills and rigors, any prodromal flu symptoms, productive cough, hemoptysis, peripheral chest pain, palpitations, lightheadedness and dizziness. In ER, she underwent the CTA Chest for slightly elevated D Dimer with the concern of Pulmonary Embolism, which ruled out the acute PE. She is not on the prescribed medications regularly as per her orchestra conductor Dr Draper[facility] clinic, where she went there for her PE since 2021. She usually go to her PCP LIA uRssell in the [facility]. She denied any previous history of long distance travel and recent diagnosis of cancer and its treatment. Allergies: Coded Allergies: No Known Allergies (Unverified , 10/19/24) Home Medications Home Medications Active K-Dur (Potassium Chloride) 10 Meq Tab.prt.sr 10 Meq PO DAILY 30 Days Lasix (Furosemide) 20 Mg Tablet 20 Mg PO DAILY 30 Days Eliquis (Apixaban) 5 Mg Tablet 5 Mg PO BID 30 Days Lisinopril 5 Mg Tablet 5 Mg PO DAILY 30 Days Nitrostat SL* (Nitroglycerin) 0.4 Mg Tablet 0.4 Mg SL Q5MIN PRN 30 Days Carvedilol 3.125 Mg Tablet 3.125 Mg PO BID 30 Days Proair Hfa (Albuterol Sulfate) 1 Puff Inh 2 Puffs IH Q6H PRN Past Medical History Past Medical History CHFrEF 15-20%, pulmonary hypertension with RVSP 56 mm Hg on 02/24/2021, pulmonary embolism in 2021 and was on the Eliquis for a year and did not take that anymore. chronic back pain, substance use disorder-heavy ETOH Family history of breast and lung cancer in parents and grandmother and cousin. Past Surgical History Surgical History Comment No significant past surgical history Past Social History Social History Comment She is currently living by herself at her house. She has a concern that somebody poison her food where she works at. 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 Her orchestra conductor is Dr. Draper, her PCP is LIA Russell at the [facility]. She denies smoking cigarettes for lifetime, committed that she occasionally eat marijuana for her chronic pain, and drinking 1-3 6 oz shots of Heavy Liquor with 15% EtOH involvement, and denied for using any illicit drugs including cocaine and amphetamine anymore. Lives with: Spouse Lives In: Home Past Social History: Hx cocaine use ROS All Other Systems: Reviewed and Negative ROS Constitutional: No fever, chills, dizziness, weakness, weight gain or loss Eyes: No pain, erythema, discharge, blurring of vision ENT: No sore throat, epistaxis, tinnitus Cardiovascular: No palpitations, syncope Respiratory: No shortness of breath, cough, hemoptysis Gastrointestinal: Normal appetite. No nausea, vomiting, diarrhea, constipation, hematemesis, abdominal pain, bloating, melena or fresh blood Genitourinary: No frequency, urgency, nocturia, hematuria or dysuria Musculoskeletal: No arthralgias or myalgias Integumentary: No change in skin, hair, nails. No swelling, bruising, abrasions Neurologic: No headache, neck pain, numbness or tingling of the extremities, weakness Psychiatric: No delusions, depression, loss of interest in normal activity or change in sleep pattern, hallucinations, suicidal ideations Endocrine: No fatigue, weakness, polydipsia, polyuria, change in appetite, heat or cold intolerance, sweating, dry skin Hematological: No bleeding, petechiae, bruising Allergies: No asthma or urticaria Exam Vitals: Vital Signs Date Time Temp Pulse Resp B/P (MAP) Pulse Ox O2 Delivery O2 Flow Rate FiO2 03/02/25 16:43 101 19 149/108 (122) 96 0 03/02/25 11:13 98.4 General: General: Well alert, well oriented, not confused, not agitated, not in acute distress, well cooperated during the physical. HEENT: HEENT: Conjunctive are pink, sclerae clear, no icterus, pupil is equal in both sides, reactive to light, no ear discharge, no pharyngeal erythema or an edema, mouth and lips are moist. Neck: Neck: Supple, no JVD, no lymphadenopathy and thyromegaly. Chest: Lungs:Equal air entry on both lungs, no additional sounds Cardiovascular: Heart: S1-S2 regular sinus rhythm and, regular rate, no gallops, no rubs, no murmurs Abdomen: Abdomen: No visible peristalsis, Bowel sounds present on auscultation, soft, nontender, no guarding, no rigidity Extremities: Extremities: No obvious deformities, no pitting edema bilaterally, capillary refill intact, able to wiggle toes both sides, peripheral pulsations are intact on both sides Central Nervous System: CARPET MECHANIC: No focal neurological deficits, no motor and sensory weakness in all 4 extremities, could move all 4 extremities Musculoskeletal: Musculoskeletal: No joint swelling, deformities, inflammations, and no scoliosis and back tenderness Skin: Skin: No active skin lesions and rashes Diagnostic Data Last Recorded Lab Results: 03/02/25 1138 03/02/25 1127 Diagnostic Data: Laboratory Tests Test 03/02/25 11:27 D-Dimer 1.14 MG/L FEU (0-0.50) H D-Dimer Comment Counseling Services Smoking & Tobacco Cessation: > 10 Minutes Advance Care Planning Advanced Care plannin - 30 Minutes Additional Plan A 54 years old female with a past medical history of systolic CHFrEF 15-20%, pulmonary hypertension with RVSP 56 mm Hg on 02/24/2021, pulmonary embolism in 2021, chronic back pain, substance use disorder-heavy ETOH, who presented to the ER for the acute shortness of breath and visited to the ER with the own concern of having the pulmonary embolism. # Acute respiratory failure from acute on chronic systolic CHFrEF 15-20% on 02/24/2021, AHA stage- C, and NYHA Class II # Hx of right pulmonary embolism- unknown etiology/ unprovoked # Excluded out Pulmonary embolism -given history of previous unprovoked pulmonary embolism with medication noncompliance along with systolic CHFrEF, patient was admitted to the hospital to ruled out pulmonary embolism and further management. -given situation of patient's D-dimer was slightly nonspecifically elevated with 1.14 with Wells criteria of pulmonary embolism showed moderate risk with three points, patient underwent CTA chest showing No pulmonary embolus or other acute abnormality. Stable intrathoracic lymphadenopathy. -pending Serology for COVID and influenza type A and B -although patient's proBNP is largely elevated with a 5872, patient did not show any significant acute fluid retention from heart failure at the moment. Plan: -Ordered 2D echo -med rec was done and continued carvedilol 3.125 mg b.i.d., lisinopril 5 mg daily -need to adjust the meds of GDMT based on the Pending 2D echo result -Continue IV Lasix 20 mg BID -Needs the previous PCP records for her unprovoked PE workup to consider the lifelong anticoagulations -continue PO Eliquis 5 mg BID until proven otherwise # Non Specific Pulmonary Hypertension # Chronic stable non specific mediastinal lymphadenopathy -Previous records of echo showed RVSP 56 mmHg, and no pulmonary interstitial pathology was detected in the CXR which showed No acute intrathoracic abnormality. Cardiomegaly., with denying history of lifelong non smoker and chronic coughing. -recommend to follow up with Pulmonology in the outpatient to eval for mediastinal lymphadenopathy and nonspecific pulmonary hypertension -Continue albuterol inhalation as needed from home medication list # Substance use disorder- EtOH, active # Hx of cocaine and methamphatamine -social welfare research worker and EtOH moderate withdrawal protocol are in -strongly encourged to consider to cut back and off drinking -educated about the risks of having chronic EtOH use disorder -pending drug screen # Hyperglycemia # Hypoalbuminaemia -pending HbA1C and lIpid panel -encouraged protein intake CODE STATUS: Full code DVT prophylaxis: Eliquis Analgesia/sedation: Morphine as needed Lines/tubes: PIV GI prophylaxis: None Nutrition: Heart healthy Prognosis: Guarded Disposition: Continue medical management, follow up with the echocardiogram, PT eval and DC plan. Resident attestation: Patient was seen, examined and discussed with attending , Dr. Yara COOK MD Internal Medicine Resident, PGY3 [facility] Date of Service: Mar 02, 2025 Billing Provider: CHERYL SERRANO MD,AIYANA, RES Mar 02, 2025 17:02
[2025-03-02 17:16] LABS: INFLUENZA TYPE A ANTIGEN RAPID NEGATIVE (Negative); INFLUENZA TYPE B ANTIGEN RAPID NEGATIVE (Negative)
[2025-03-02] MEDS: furosemide 10 MG/1 ML 10ml inj IV SCH (17:41)
[2025-03-02] MEDS ORDERED: diazepam inj 5 MG/ML inj. IV PRN (17:55)
[2025-03-02 18:36] VITALS: BP 159/107; PULSE 105; RESP 17; TEMP 97.7; O2SAT 96
[2025-03-02] MEDS: thiamine 100mg/ml 2ml inj. IV SCH (19:43)
[2025-03-02] MEDS: K and/or MAG REPLACEMENT MC SCH (19:51)
[2025-03-02 20:00] VITALS: RESP 17; O2SAT 97
[2025-03-02 20:49] LABS: URINE AMPHETAMINE SCREEN NEGATIVE (Neg); URINE BARBITUATE SCREEN NEGATIVE (Neg); URINE BENZODIAZEPINES SCREEN NEGATIVE (Neg); URINE CANNABINOID SCREEN NEGATIVE (Neg); URINE COCAINE SCREEN NEGATIVE (Neg); URINE METHADONE SCREEN NEGATIVE (Neg); URINE OPIATE SCREEN NEGATIVE (Neg); URINE PHENCYCLIDINE SCREEN NEGATIVE (Neg)
[2025-03-02 20:58] LABS: LEUKOCYTE ESTERASE ,URINE NEGATIVE (Neg); NITRITES, URINE NEGATIVE (Neg); OCCULT BLOOD,URINE TRACE-LYSED (Neg)
[2025-03-02 21:15] LABS: UA COLLECTION TYPE NON-SPECIFIED
[2025-03-02 21:18] LABS: SQUAMOUS EPITHELIAL CELL,UR FEW /LPF (FEW)
[2025-03-02 22:00] VITALS: BP 131/93; PULSE 97; RESP 24; TEMP 97.6; O2SAT 96
[2025-03-03] VITALS (9 sets, daily range): BP systolic 109–144; BP diastolic 75–105; PULSE 70–90; RESP 16–22; TEMP 97.2–98.3; O2SAT 95–99
[2025-03-03 06:18] LABS: MEAN PLATELET VOLUME 7.4 FL (7.4-10.4); RED CELL DISTRIBUTION WIDTH 14.0 % (11.5-14.5)
[2025-03-03 06:44] LABS: CHOL/HDL RATIO 3.3 (0.00-4.99); CREATININE 0.63 MG/DL (0.40-0.90); LDL CHOLESTEROL 93 MG/DL (50-100); TOTAL CARBON DIOXIDE 25.4 MMOL/L (24-32); eCRCL 90 ML/MIN; eGFR > 90 ML/MIN
[2025-03-03] MEDS: folic acid 1mg/0.2ml inj IV SCH (07:40)
[2025-03-03] MEDS: EMPAGLIFLOZIN 10 MG TABLET PO SCH (14:50)
--- NOTE | 2025-03-03 16:04 | PROGRESS NOTE- Residence ---
Progress Note - Resident Providers to CC Resident Creating Document: AIYANA COOK RES ~ Antibiotic Timeout Antibiotic Ordered?: No Subjective Patient stated that her shortness of breath is getting better than yesterday. She does not have any severe clinical symptoms of congestive heart failure at the moment. Objective Vital Signs Date Time Temp Pulse Resp B/P (MAP) Pulse Ox O2 Delivery O2 Flow Rate FiO2 03/03/25 14:50 83 03/03/25 11:46 97.7 18 120/83 (95) 97 Room Air 03/02/25 16:43 0 Result Diagram: 03/03/2552 03/03/25551 Vitals were stable at the moment with temp 97.2 F, UT 70/minute, RR 21/minute, BP 144/90 mm Hg, pulse oximetry 95% on room air. On examination, General: Well alert, well oriented, not confused, not agitated, not in acute distress, well cooperated during the physical. HEENT: Conjunctive are pink, sclerae clear, no icterus, pupil is equal in both sides, reactive to light, no ear discharge, no pharyngeal erythema or an edema, mouth and lips are moist. Neck: Supple, no JVD, no lymphadenopathy and thyromegaly. Lungs:Equal air entry on both lungs, no additional sounds Heart: S1-S2 regular sinus rhythm and, regular rate, no gallops, no rubs, no murmurs Abdomen: No visible peristalsis, Bowel sounds present on auscultation, soft, nontender, no guarding, no rigidity Extremities: No obvious deformities, no pitting edema bilaterally, capillary refill intact, able to wiggle toes both sides, peripheral pulsations are intact on both sides WINDOWS SERVER ADMINISTRATOR: No focal neurological deficits, no motor and sensory weakness in all 4 extremities, could move all 4 extremities Musculoskeletal: No joint swelling, deformities, inflammations, and no scoliosis and back tenderness Skin: No active skin lesions and rashes Coagulation Studies Laboratory Tests Test 03/02/25 11:27 D-Dimer 1.14 MG/L FEU (0-0.50) H D-Dimer Comment Counseling Services Smoking & Tobacco Cessation: > 10 Minutes Advance Care Planning Advanced Care plannin - 30 Minutes Assessment Assessment A 54 years old female with a past medical history of systolic CHFrEF 15-20%, pulmonary hypertension with RVSP 56 mm Hg on 02/24/2021, pulmonary embolism in 2021, chronic back pain, substance use disorder-heavy ETOH, who presented to the ER for the acute shortness of breath and visited to the ER with the own concern of having the pulmonary embolism. Plan Plan # Acute respiratory failure from acute on chronic systolic CHFrEF 15-20% on 02/24/2021, AHA stage- C, and NYHA Class II # Hx of right pulmonary embolism- unknown etiology/ unprovoked # Excluded out Pulmonary embolism -given history of previous unprovoked pulmonary embolism with medication noncompliance along with systolic CHFrEF, patient was admitted to the hospital to ruled out pulmonary embolism and further management. -given situation of patient's D-dimer was slightly nonspecifically elevated with 1.14 with Wells criteria of pulmonary embolism showed moderate risk with three points, patient underwent CTA chest showing No pulmonary embolus or other acute abnormality. Stable intrathoracic lymphadenopathy. -pending Serology for COVID and influenza type A and B -although patient's proBNP is largely elevated with a 5872, patient did not show any significant acute fluid retention from heart failure at the moment. Plan: -Ordered 2D echo -med rec was done and continued carvedilol 3.125 mg b.i.d., lisinopril 5 mg daily -need to adjust the meds of GDMT based on the Pending 2D echo result -Continue IV Lasix 20 mg BID -Needs the previous PCP records for her unprovoked PE workup to consider the lifelong anticoagulations -continue PO Eliquis 5 mg BID until proven otherwise 03/03/25: Prelim echocardiogram showed systolic HFrEF 15-20%, moderately dilated RV, severe biatrial dilatation, mild MR and UT, trace TR, normal pericardium and no effusion. -pt was taking Lisinopril at home which shall be continued and consider to switch to ARNI after 48 hrs of wash out time, will start metoprolol succinate 50 mg Daily starting from tomorrow after her home med carvedilol will be stopped tomorrow -added and a started to continue spironolactone and Jardiance today -to start LifeVest, and educated about it # Non Specific Pulmonary Hypertension # Chronic stable non specific mediastinal lymphadenopathy -Previous records of echo showed RVSP 56 mmHg, and no pulmonary interstitial pathology was detected in the CXR which showed No acute intrathoracic abnormality. Cardiomegaly., with denying history of lifelong non smoker and chronic coughing. -recommend to follow up with Pulmonology in the outpatient to eval for mediastinal lymphadenopathy and nonspecific pulmonary hypertension -Continue albuterol inhalation as needed from home medication list 03/03/2025: Continue current therapy -outpatient pulmonology follow up # Substance use disorder- EtOH, active # Hx of cocaine and methamphatamine -outreach and education social worker and EtOH moderate withdrawal protocol are in -strongly encourged to consider to cut back and off drinking -educated about the risks of having chronic EtOH use disorder -pending drug screen 03/03/2025 : Drug screen showed negative # Hyperglycemia # Hypoalbuminaemia -pending HbA1C and lipid panel -encouraged protein intake 03/03/2025: Random Glucose ranging around 120s, HGB A1c was canceled -encourage protein diet CODE STATUS: Full code DVT prophylaxis: Eliquis Analgesia/sedation: Morphine as needed Lines/tubes: PIV GI prophylaxis: None Nutrition: Heart healthy Prognosis: Guarded Disposition: Continue medical management with GDM T, LifeVest, PT eval and DC plan tomorrow. Resident MD attestation: Patient was seen, examined and discussed with attending , Dr. Yara COOK MD Internal Medicine Resident, PGY3 [facility] Date of Service: Mar 03, 2025 Billing Provider: CHERYL SERRANO MD, TIN, RES Mar 03, 2025 16:04
--- NOTE | 2025-03-03 18:35 | CARDIOLOGY REPORT ---
APPROVED REPORT EXAM: Comprehensive 2D, Doppler, and color-flow Echocardiogram. Patient Location: 3[address] Blood Pressure: 144/90 mmHg Heart Rate: 78 bpm Rhythm: SINUS Indications CONGESTIVE HEART FAILURE ELEVATED PROBNP (5872) SHORTNESS OF BREATH HX PULMONARY EMBOLISM 2021 Tourist Information Officer: Angeline Pillai MD Previous echo: 02/24/21 [facility] (EF 15-20%, mild MR, mod TR, mild PI) 2D Dimensions RVDd 4.2 cm LA Diam 6.5 cm IVSd 0.8 (0.7-1.1cm) LVDd 6.1 cm PWd 1.2 (0.7-1.1cm) IVSs 0.7 (0.8-1.2cm) LVDs 5.2 (2.5-4.0cm) PWs 1.7 (0.8-1.2cm) LVOT Diameter 2.09 (1.8-2.4cm) LVEF(%) 31.3 (>50%) Ao Asc Diam. 3.02 cm IVC 19.41 mm FS (%) 15.1 % SV 58.5 ml CO 2.7 L/min M-Mode Dimensions Left Atrium(MM) 4.16 (2.5-4.0cm) Aortic Root 2.26 (2.2-3.7cm) Aortic Cusp Exc 1.71 (1.5-2.0cm) MV EPSS 1.9 (<0.5cm) FS (%) 8 % ESV(Teich) 123.6 ml Biplane 2D LA Volumes LA ESV Index 45.05 mL/m2 Aortic Valve AoV Peak Jasvir. 139.7 cm/s AoV VTI 22.8 cm AO Peak GR. 7.8 mmHg AO Mean GR. 5 mmHg LVOT VTI 17.54 cm LVOT Peak Jasvir. 102.5 cm/s MASTER(VTI)/BSA 2.64 cm2/m2 MASTER (VTI) 2.64 cm2 AV DI 0.77 % Mitral Valve MV E Velocity 101.9 cm/s MV Peak Gr. 7 mmHg MV DECEL TIME 136 ms MV A Velocity 46.7 cm/s MV PHT 68 ms E/A Ratio 2.2 MVA (PHT) 3.24 cm2 MV VMax 129.9 cm/s TDI Medial E' P. V 6.45 cm/s E/Medial E' 15.8 Pulmonary Vein S1 Velocity 34.6 cm/s D2 Velocity 66.3 cm/s PVa Velocity 24.4 cm/s PVa Duration 104 msec LEFT VENTRICLE Dilated LV size and mild posterior wall hypertrophy. Multisegmental wall motion abnormalities present. Overall systolic function is severely reduced. There is severe LV systolic dysfunction present. Overall estimated LVEF is about 15-20%. RIGHT VENTRICLE RV is moderately dilated with mildly reduced function. Thickened RV free wall. ATRIA Severe biatrial dilation. AORTIC VALVE Trileaflet AV appears mildly sclerotic without stenosis or insufficiency. MITRAL VALVE Mild MV annular calcification and leaflet thickening without stenosis. Mild regurgitation. TRICUSPID VALVE TV appears structurally normal with trace regurgitation. PULMONIC VALVE Normal PV without stenosis, mild insufficiency. GREAT VESSELS The aortic root is normal in size. The ascending aorta is normal in size. The IVC is normal in size and collapses greater than 50% with inspiration. PERICARDIUM Normal pericardium. No effusion. Other Information Study Quality: Adequate Conclusion There is severe LV systolic dysfunction present. Overall estimated LVEF is about 15-20%. Dilated LV size and mild posterior wall hypertrophy. Multisegmental wall motion abnormalities present. Overall systolic function is severely reduced. RV is moderately dilated with mildly reduced function. Thickened RV free wall. Trileaflet AV appears mildly sclerotic without stenosis or insufficiency. Mild MV annular calcification and leaflet thickening without stenosis. Mild regurgitation. TV appears structurally normal with trace regurgitation. Normal PV without stenosis, mild insufficiency. Normal pericardium. No effusion.
[2025-03-04 02:00] VITALS: BP 111/76; PULSE 76; RESP 18; TEMP 97.9; O2SAT 96
[2025-03-04 06:00] VITALS: BP 106/64; PULSE 70; RESP 18; TEMP 97.8; O2SAT 99
[2025-03-04 07:01] LABS: MEAN PLATELET VOLUME 7.5 FL (7.4-10.4); RED CELL DISTRIBUTION WIDTH 14.0 % (11.5-14.5)
[2025-03-04 07:27] LABS: CREATININE 0.88 MG/DL (0.40-0.90); TOTAL CARBON DIOXIDE 25.0 MMOL/L (24-32); eCRCL 65 ML/MIN; eGFR 67 ML/MIN
[2025-03-04 08:00] VITALS: RESP 20; O2SAT 96
[2025-03-04 10:00] VITALS: BP_SYST 108
[2025-03-04] MEDS: metoprolol succinate 25mg (24-HOUR) SR. Tablet PO SCH (10:00)
--- NOTE | 2025-03-04 12:12 | DISCHARGE SUMMARY-Residence ---
Discharge Summary Providers to CC Resident Creating Document: AIYANA COOK RES ~ Discharge Summary Admission Diagnosis: Acute respiratory distress from Acute CHF exacerbation Hospital Course DATE OF ADMISSION: 03/02/2025 DATE OF DISCHARGE: 03/04/2025 Discharge Diagnosis\Comment: # Acute respiratory failure from acute on chronic systolic CHFrEF 15-20% on 02/24/2021, AHA stage- C, and NYHA Class II # Hx of right pulmonary embolism- unknown etiology/ unprovoked # Excluded out Pulmonary embolism # Non Specific Pulmonary Hypertension # Chronic stable non specific mediastinal lymphadenopathy # Substance use disorder- EtOH, active # Hx of cocaine and methamphatamine # Hypoalbuminaemia Operations\Procedures: None Consultants: None Complications: None Condition on DC: Stable New Medications: Albuterol Sulfate (Ventolin Hfa) 90 Mcg Hfa.aer.ad 2 PUFFS IH 5XD, #1 INHALER Cyanocobalamin* (Vitamin B-12*) 500 Mcg Tablet 1 TAB PO DAILY for 30 Days, #30 TAB Dapagliflozin Propanediol (Farxiga) 5 Mg Tablet 1 TAB PO DAILY for 30 Days, #30 TAB 0 Refills Multivitamin (Multi Vitamin Daily) 1 Each Tablet 1 TAB PO DAILY for 30 Days, #30 TAB 0 Refills Apixaban (Eliquis) 5 Mg Tablet 5 MG PO BID for 30 Days, #60 TAB Folic Acid (Folic Acid) 5 Mg/Ml Vial 1 MG IV DAILY, #30 VIAL Lisinopril (Lisinopril) 5 Mg Tablet 5 MG PO DAILY, #30 TAB Metoprolol Succinate (Metoprolol Succinate) 25 Mg Tab.sr.24h 50 MG PO DAILY for 30 Days, #60 TAB.SR Spironolactone (Aldactone) 25 Mg Tablet 25 MG PO DAILY@0830, #30 TAB Discharge Summary: A 54 years old female with a past medical history of systolic CHFrEF 15-20%, pulmonary hypertension with RVSP 56 mm Hg on 02/24/2021, pulmonary embolism in 2021, chronic back pain, substance use disorder-heavy ETOH, who presented to the ER for the acute shortness of breath and visited to the ER with the own concern of having the pulmonary embolism. Hospital course: Given history of previous unprovoked pulmonary embolism with medication noncompliance along with systolic CHFrEF, patient was admitted to the hospital to rule out pulmonary embolism with her slightly elevated D Dimer with 1.14 and her Well Criteria scores showed moderate risk with three points, and further management. She underwent the CTA chest which excluded out her possibility of Acute Pulmonary Embolism. Her COVID and influenza type A and B serologies showed negative. On admission, did not show any significant acute fluid retention from heart failure although her proBNP was largely elevated with 5872 for which she was put on IV Lasix 20 mg BID. All of her home medications including Eliquis were reviewed appropriately and continued after reconciliation was done. Her home medication carvedilol was switched to metoprolol succinate 50 mg daily and also added p.o. spironolactone 25 mg daily, and p.o. Jardiance 10 mg daily as part of her GDMT. During hospitalization, she was strongly encourged to consider to cut back and cut off drinking EtOH and encouraged to build up the proper quit drinking alcohol plan with the PCP after discharged. She was put on moderate alcohol withdrawal protocol during hospitalization. DVT prophylaxis was done with the Eliquis and pain was controlled with the morphine as needed. All of her questions and concerns were addressed with the best knowledge of our team before she was discharged, she was already educated and explained to be compliance with the LifeVest mentioned 27/11, and being compliance with the GDM T medications with follow up with Dr. Draper after discharge. Imaging during hospitalization: -Chest x-ray on 03/02/2025: No acute intrathoracic abnormality. Cardiomegaly. -CTA chest on 02/2021: No pulmonary embolus or other acute abnormality. Stable intrathoracic lymphadenopathy. -Echocardiogram on 03/03/2025: Severe Systolic LV dysfunction, LVEF 15-20%, multi segmental wall motion abnormalities, moderately dilated RV, mild MR, trace TR, normal pericardium and no effusion. Labs: Laboratory Tests Test 03/02/25 13:47 03/02/25 14:38 03/02/25 16:46 03/02/25 20:00 Troponin I High Sensitivity 43 ng/L 43 ng/L Troponin I High Sens Percent Delta 2 % 0 % Troponin I Hi Sens Absolute Change 1 ng/L 0 ng/L Influenza Type A Antigen Negative Influenza Type B Antigen Negative SARS-CoV-2 Antigen (Rapid) Negative Urine Specimen Description Non-specified Urine Color Straw Urine Clarity Clear Urine pH 6.0 Urine Specific [place] 1.010 Urine Protein Negative mg/dl Urine Glucose (UA) Negative mg/dl Urine Ketones Negative mg/dl Urine Occult Blood Trace-lysed Urine Nitrite Negative Urine Bilirubin Negative Urine Urobilinogen 0.2 E.U/dL Urine Leukocyte Esterase Negative Urine RBC None seen /HPF Urine WBC 0-4 /HPF Urine Squamous Epithelial Cells Few /LPF Urine Bacteria Few /HPF Urine Culture Indicated Not ind Volume Urine Centrifuged 10 ml Urine Comment Urine Opiates Screen Negative Urine Methadone Screen Negative Urine Fentanyl Screen Negative Urine Barbiturates Screen Negative Urine Phencyclidine Screen Negative Urine Amphetamines Screen Negative Urine Benzodiazepines Screen Negative Urine Cocaine Screen Negative Urine Cannabinoids Screen Negative Drug Screen Comment Test 03/03/25 05:52 03/04/25 06:13 White Blood Count 8.0 X10'3 7.6 X10'3 Red Blood Count 4.65 X10'6 4.89 X10'6 Hemoglobin 13.6 g/dl 14.0 g/dl Hematocrit 39.9 % 42.1 % Mean Corpuscular Volume 85.8 FL 86.0 FL Mean Corpuscular Hemoglobin 29.3 PG 28.7 PG Mean Corpuscular Hemoglobin Concent 34.1 g/dL 33.3 g/dL Red Cell Distribution Width 14.0 % 14.0 % Platelet Count 365 X10'3 393 X10'3 Mean Platelet Volume 7.4 FL 7.5 FL Neutrophils (%) (Auto) 59.9 % 63.5 % Lymphocytes (%) (Auto) 30.7 % 26.4 % Monocytes (%) (Auto) 6.6 % 6.7 % Eosinophils (%) (Auto) 1.9 % 2.9 % Basophils (%) (Auto) 0.9 % 0.5 % Neutrophils # (Auto) 4.8 X10'3 4.8 X10'3 Lymphocytes # (Auto) 2.5 X10'3 2.0 X10'3 Monocytes # (Auto) 0.5 X10'3 0.5 X10'3 Eosinophils # (Auto) 0.1 X10'3 0.2 X10'3 Basophils # (Auto) 0.1 X10'3 0.0 X10'3 CBC Comment Sodium Level 138 MMOL/L 140 MMOL/L Potassium Level 3.9 MMOL/L 4.1 MMOL/L Chloride Level 105 MMOL/L 105 MMOL/L Carbon Dioxide Level 25.4 MMOL/L 25.0 MMOL/L Anion Gap 8 10 Blood Urea Nitrogen 15 MG/DL 20 MG/DL Creatinine 0.63 MG/DL 0.88 MG/DL Estimated GFR/1.73 m2 > 90 ML/MIN 67 ML/MIN BUN/Creatinine Ratio 23.8 22.7 Glucose Level 111 MG/DL 120 MG/DL Calcium Level 8.9 MG/DL 8.9 MG/DL Magnesium Level 2.2 MG/DL 2.3 MG/DL Total Bilirubin 0.5 MG/DL 0.4 MG/DL Aspartate Amino Transf (AST/SGOT) 40 U/L 37 U/L Alanine Aminotransferase (ALT/SGPT) 101 U/L 104 U/L Alkaline Phosphatase 103 IU/L 103 IU/L Total Protein 7.3 G/DL 7.3 G/DL Albumin 3.0 G/DL 2.9 G/DL Globulin 4.3 G/DL 4.4 G/DL Albumin/Globulin Ratio 0.7 0.7 Triglycerides Level 72 MG/DL Cholesterol Level 147 MG/DL LDL Cholesterol 93 MG/DL HDL Cholesterol 45 MG/DL Cholesterol/HDL Ratio 3.3 Chemistry Comments Thyroid Stimulating Hormone (TSH) 3.75 ulU/ml Discharge instructions: - immediate return to ER for any emergency conditions including intolerable progressive shortness of breath, chest pain/pressure/discomfort, lightheadedness and dizziness, loss of consciousness episodes, etc. -strongly encouraged to wear LifeVest 27/11 -strongly encouraged to be compliance with the for important medications GDMT for reduced ejection fraction heart failure -low-salt diet, control blood pressure, pulmonary hypertension etc. -follow up with the PCP, Cardiology to rechecked blood walks and modify medications including switching to recommended Entresto with continuous blood pressure monitoring after 48 hours washout period PCP of cessation of the lisinopril to avoid side effects. -recommend to follow up with the pulmonology for COPD control and nonspecific pulmonary high pressure. Resident MD attestation: Patient was seen, examined and discussed with attending MD, Dr. Yara COOK MD Internal Medicine Resident, PGY3 [facility] *Problems/Diagnosis: (1) SOB (shortness of breath) Status: Resolved (2) Congestive heart failure (CHF) Status: Resolved Total Time Spent on D/C: > 30 Minutes Date of Service: Mar 04, 2025 Billing Provider: CHERYL SERRANO MD, TIN, RES Mar 04, 2025 12:12
[2025-03-04] MEDS ORDERED: MULT-1085 PO (12:29)
[2025-03-04] MEDS ORDERED: FOLI IV (12:29)
[2025-03-04] MEDS ORDERED: LISI5TAB22 PO (12:29)
[2025-03-04] MEDS ORDERED: METO-395 PO (12:29)
[2025-03-04] MEDS ORDERED: CYAN500T71 PO (12:29)
[2025-03-04] MEDS ORDERED: APIX5TAB3 PO (12:29)
[2025-03-04] MEDS ORDERED: SPIR25TA PO (12:29)
[2025-03-04] MEDS ORDERED: DAPA5TAB PO (12:29)
[2025-03-04] MEDS ORDERED: ALBU18HF2 IH (12:29)
[2025-03-04 14:28] VITALS: PULSE 84; RESP 18; O2SAT 95
== END 2025-03-04 15:39 | disposition home or self-care (01) | DRG 133 ==
LOC: ER 11:13 → PCU 3S 15:15
PROVIDERS: ADMIT Family Medicine; ATTEND Family Medicine
PROC: B32T1ZZ Computerized Tomography (CT Scan) of Left Pulmonary Artery using Low Osmolar Contrast (ICD-10-PCS; principal; 2025-03-02)
PROC: B3201ZZ Computerized Tomography (CT Scan) of Thoracic Aorta using Low Osmolar Contrast (ICD-10-PCS; 2025-03-02)
PROC: B32S1ZZ Computerized Tomography (CT Scan) of Right Pulmonary Artery using Low Osmolar Contrast (ICD-10-PCS; 2025-03-02)
DX: J96.00 Acute respiratory failure, unspecified whether with hypoxia or hypercapnia (principal); I50.43 Acute on chronic combined systolic (congestive) and diastolic (congestive) heart failure; I27.20 Pulmonary hypertension, unspecified; E88.09 Other disorders of plasma-protein metabolism, not elsewhere classified; Z79.01 Long term (current) use of anticoagulants; R73.9 Hyperglycemia, unspecified; R59.0 Localized enlarged lymph nodes; F10.20 Alcohol dependence, uncomplicated; Z86.711 Personal history of pulmonary embolism; Z79.899 Other long term (current) drug therapy
CPT/HCPCS: 36415; 71045; 71275; 80048; 80053; 80061; 80305; 81001; 83036; 83735; 83880; 84443; 84484; 85025; 85379; 87081; 87804; 87811; 93005; 93306; 94760; 96374; 96375; 99285; G0378; J1938; J3411; J3490